=== PATIENT | female | born 1985 | race Hispanic/Latino ===

== ENCOUNTER 2022-05-24 04:24 | Inpatient (IN) | payer OTHER, SELFPAY ==
[2022-05-24 06:03] VITALS: BMI 27.1
[2022-05-24] MEDS ORDERED: Dextrose 50% Abboject 50 ML SYRINGE SLOW IVP PRN (06:06)
[2022-05-24] MEDS ORDERED: Dextrose 5% in Water 1,000 ML IV PRN (06:06)
[2022-05-24] MEDS ORDERED: hydrALAZINE 20 MG/ML VIAL SLOW IVP PRN (06:06)
[2022-05-24] MEDS ORDERED: Ondansetron PF 4 MG/2 ML Vial IVP PRN ×2 (06:06→06:15)
[2022-05-24] MEDS ORDERED: Ketorolac Tromethamine 30 MG/ML VIAL IVP PRN (06:09)
[2022-05-24] MEDS ORDERED: Morphine 4 MG/ML VIAL SLOW IVP PRN ×3 (06:10→21:30)
[2022-05-24] MEDS ORDERED: Morphine 2 MG/ML VIAL SLOW IVP PRN ×2 (06:10→14:31)
[2022-05-24] MEDS ORDERED: traMADol HCl 50 MG TAB PO PRN ×4 (06:11→21:29)
[2022-05-24] MEDS: Acetaminophen 500 MG TAB PO SCH ×3 (06:42→18:39)
[2022-05-24] MEDS: D5 1/2 NS w/20 mEq KCL 1,000 ML IV SCH ×2 (06:51→17:37)
[2022-05-24] MEDS: Famotidine 20 MG TAB PO SCH ×2 (08:53→21:15)
[2022-05-24] MEDS: Senokot S 8.6-50 MG TAB PO SCH ×2 (08:53→21:16)
[2022-05-24] MEDS: Polyethylene Glycol 3350 17 GM Packet PO SCH (08:53)
[2022-05-24] MEDS: Potassium Chloride 20 MEQ in Premix Bag 1 BAG IVPB SCH ×2 (10:28→17:38)
[2022-05-24] MEDS ORDERED: Midazolam HCl 2 mg/2 ml Vial ONE (11:30)
[2022-05-24] MEDS ORDERED: fentaNYL Citrate/PF 100 MCG/2 ML SYRINGE ONE (11:30)
[2022-05-24] MEDS ORDERED: HYDROmorphone 0.5 MG/0.5 ML SYRINGE ONE (11:30)
[2022-05-24] MEDS ORDERED: CEFAZOLIN 2 GM in Sodium Chloride 0.9% 100 ML IVPB SCH (12:00)
[2022-05-24] MEDS ORDERED: Sodium Chloride 0.9% 100 ML ONE (12:18)
[2022-05-24] MEDS ORDERED: CEFAZOLIN 2 GM VIAL ONE (12:18)
[2022-05-24] MEDS ORDERED: Lidocaine 2% 6 ML SYR ONE (12:41)
[2022-05-24] MEDS ORDERED: Ondansetron PF 4 MG/2 ML Vial ONE (12:57)
[2022-05-24] MEDS ORDERED: PROPOFOL 200 MG/20 ML VIAL ONE (12:57)
[2022-05-24] MEDS ORDERED: Lidocaine 1% PF 5 ML VIAL ONE (12:57)
[2022-05-24] MEDS ORDERED: Succinylcholine 200 MG/10 ml SYRINGE FS ONE (12:57)
[2022-05-24] MEDS ORDERED: EPINEPHrine 1 MG/ML AMP ONE (13:50)
[2022-05-24] MEDS ORDERED: HYDROmorphone 2 MG/ML VIAL SLOW IVP PRN (13:50)
[2022-05-24] MEDS ORDERED: Bupivacaine PF 0.5% 30 ML VIAL ONE (13:50)
[2022-05-24] MEDS ORDERED: Ondansetron HCl/PF 4 MG/2 ML Vial IVP PRN (13:50)
[2022-05-24] MEDS ORDERED: Promethazine HCl 25 MG/ML VIAL IM PRN (13:50)
[2022-05-24] MEDS ORDERED: Promethazine HCl 25 MG/ML VIAL IVPB PRN (13:50)
[2022-05-24] MEDS ORDERED: HYDROcodone/Acetaminophen 10/325 mg Tablet PO PRN ×2 (14:31)
[2022-05-24] MEDS ORDERED: Communication Order-Pharmacy FS SCH (14:45)
[2022-05-24] MEDS ORDERED: TETANUS AND DIPHTHERIA TOX/PF 0.5 ML DISP.SYRIN IM SCH (15:00)
[2022-05-24] MEDS: Ibuprofen 200 MG TAB PO SCH ×2 (16:24→21:15)
[2022-05-24] MEDS ORDERED: Potassium Chloride 20 MEQ in Premix Bag 1 BAG IVPB SCH (17:45)
[2022-05-24] MEDS: CEFAZOLIN 2 GM in Sodium Chloride 0.9% 100 ML IVPB SCH (21:16)
[2022-05-24] MEDS: Aspirin 81 mg Enteric Coated Tablet PO SCH (21:16)
[2022-05-25] MEDS: Acetaminophen 500 MG TAB PO SCH ×3 (00:09→13:12)
[2022-05-25] MEDS: Ibuprofen 200 MG TAB PO SCH ×2 (05:28→13:12)
[2022-05-25] MEDS: CEFAZOLIN 2 GM in Sodium Chloride 0.9% 100 ML IVPB SCH (05:29)
[2022-05-25 06:03] LABS: #Lymphocytes 1.4 thou/uL (1.20-3.40); #Monocytes 0.8 thou/uL (0.11-0.59); #Neutrophils 10.2 thou/uL (1.40-6.50); %Basophils 0.3 % (0.0-1.0); %Eosinophils 0.1 % (0.0-10.0); %Monocytes 6.7 % (0.0-10.0); %Neutrophils 81.9 % (42.0-75.0); Hemoglobin 11.9 g/dL (12.0-16.0); Mean Corpuscular Hemoglobin 31.4 pg (27.0-31.0); Mean Corpuscular Volume 95.3 fL (78.0-98.0); Mean Platelet Volume 6.9 fL (7.4-10.4); Platelet Count 282 thou/uL (130-400); RBC Distribution Width 11.6 % (11.5-14.5); Red Blood Cell (RBC) Count 3.79 mill/uL (4.20-5.40); White Blood Cell (WBC) Count 12.5 thou/uL (4.8-10.8)
[2022-05-25 06:29] LABS: Anion Gap 12 mmol/L (10-20); BUN (Urea Nitrogen) 5 mg/dL (7.0-18.7); Calc. Creatinine Clearance 111 mL/min (70-130); Calcium 8.4 mg/dL (7.8-10.44); Carbon Dioxide 23 mmol/L (22-29); Chloride 107 mmol/L (98-107); Estimated GFR 107; Glucose 145 mg/dL (70-105); Magnesium 1.9 mg/dL (1.6-2.6); Phosphorus 3.1 mg/dL (2.3-4.7); Potassium 4.1 mmol/L (3.5-5.1); Sodium 138 mmol/L (136-145)
[2022-05-25] MEDS: Famotidine 20 MG TAB PO SCH (10:03)
[2022-05-25] MEDS: Polyethylene Glycol 3350 17 GM Packet PO SCH (10:03)
[2022-05-25] MEDS: Aspirin 81 mg Enteric Coated Tablet PO SCH (10:03)
[2022-05-25] MEDS: Senokot S 8.6-50 MG TAB PO SCH (10:03)
[2022-05-25 11:27] VITALS: BP 110/72; TEMP 98
== END 2022-05-25 15:14 | disposition home or self-care (01) | DRG 494 ==
LOC: SURG A 05:39
PROVIDERS: ADMIT Surgery; ATTEND Surgery
PROC: 0QSK04Z Reposition Left Fibula with Internal Fixation Device, Open Approach (ICD-10-PCS; principal; 2022-05-24)
PROC: 0QSH04Z Reposition Left Tibia with Internal Fixation Device, Open Approach (ICD-10-PCS; 2022-05-24)
DX: S82.852A Displaced trimalleolar fracture of left lower leg, initial encounter for closed fracture (principal); X50.1XXA Overexertion from prolonged static or awkward postures, initial encounter; W01.0XXA Fall on same level from slipping, tripping and stumbling without subsequent striking against object, initial encounter; F10.129 Alcohol abuse with intoxication, unspecified
CPT/HCPCS: 36415; 76000; 80048; 83735; 84100; 85025; C1713; C1769; J0171; J0690; J1170; J1885; J2250; J2405; J2704; J3480; J3490; S0020